=== PATIENT | male | born 1975 | race Caucasian/White ===

== ENCOUNTER 2023-09-02 00:54 | Day surgery (SDC) | payer OTHER, SELFPAY ==
[2023-06-09 09:12] VITALS: BMI 33.9
--- NOTE | 2023-06-15 11:43 | PC.NURSE ---
Patient informed RN during pre-op interview that he has been having palpitations more frequently and PCP referred him to cardiology. He saw Dr. Nicole 06/10/2023 and she since has put him on a 30 day holter monitor and sched. a transthoracic echo on 07/01/2023. Pt. has a history of jessica valve repair and atrial septal defect repair at age 10. screening Colonoscopy is rescheduled for 09/02/2023 after cardiac clearance is achieved.
--- NOTE | 2023-09-02 11:35 | PM.HPGS ---
History of Present Illness History of Present Illness Consent: Risks, benefits, and alternatives have been discussed and questions answered. Patient agrees to proceed with procedure. Chief complaint: neoplasm screening Narrative: Drew Patel is a 47 year old male here for first screening colonoscopy Review of Systems Review of Systems: All systems reviewed & are unremarkable except as noted in HPI and below PMFSH Past Medical History Medical History (Updated 09/02/23 @ 11:37 by Al Calvillo MD) Anxiety Bipolar 1 disorder Colon cancer screening PTSD (post-traumatic stress disorder) Surgical History Surgical History H/O atrial septal defect repair History of placement of ear tubes Family History Family History Grandparent Family history of multiple sclerosis Father Hypertension Social History Social History Smoking status: Never smoker Second hand tobacco smoke exposure: No Smoking end date: 02/14/06 Alcohol intake: current Alcohol use details: Socially Substance use: current Substance use type: marijuana Other substance usage details: Socially Last use: 05/19/23 Living arrangements: other Additional living arrangements comments: with sp Occupation/Education: occupation Gender identity (if verbalized by the patient): Male Sexual Orientation (if Verbalized by the Patient): Straight or Heterosexual Meds Home Medications and Allergies Home Medications Medication Instructions Recorded Confirmed Type sumatriptan succinate 100 mg tablet See Rx Instructions PO .COMPLEX 03/29/23 08/19/23 Rx #30 tabs aspirin 81 mg tablet 81 mg PO DAILY 06/09/23 08/19/23 History Allergies Allergy/AdvReac Type Severity Reaction Status Date / Time No Known Drug Allergies Allergy Unknown Unknown Verified 06/09/23 09:11 Exam Const: General: comfortable and no acute distress HENMT: Face/Nose/Sinus: Normal nares present Eyes: General: appearance normal, both eyes and all related structures Neck: Neck: no JVD Resp: Auscultation: clear to auscultation bilaterally Cardio: Rate: regular rate Rhythm: regular rhythm GI: Inspection: non-distended GI Palp: Yes Soft to palpation Skin: General skin exam: normal color Neuro: General: gait normal Speech: normal speech Extrem: General: normal to inspection Psych: Mental Status: mental status grossly normal Assessment and Plan Assessment and plan (1) Colon cancer screening: Code(s): Z12.11 - Encounter for screening for malignant neoplasm of colon Status: Acute Assessment and Plan: colonoscopy
[2023-09-02 11:42] VITALS: BP 124/79; PULSE 80; RESP 19; TEMP 36.2; O2SAT 99; BMI 33.5
--- NOTE | 2023-09-02 11:50 | WPDANESEPPF ---
Anes - Initial Pre Proc Eval Procedure: Operation Date: 09/02/23 12:30 Proposed Procedures p Screening Colonoscopy - Al Calvillo MD Date/Time: 09/02/23 11:50 Surgeon: Al Calvillo MD Pre Op Diagnosis: neoplasm screening Patient Data Age: 47 Gender: M Height: 1.83 m Weight: 112 kg Last Vital Signs Temp 97.1 F L 09/02/23 11:42 Pulse 80 09/02/23 11:42 Resp 19 09/02/23 11:42 BP 124/79 09/02/23 11:42 Pulse Ox 99 09/02/23 11:42 O2 Del Method Room Air 09/02/23 11:42 Allergies Allergy/AdvReac Type Severity Reaction Status Date / Time No Known Drug Allergies Allergy Unknown Unknown Verified 09/02/23 11:41 Home Medications Medication Instructions Recorded Confirmed Type sumatriptan succinate 100 mg tablet See Rx Instructions PO .COMPLEX 03/29/23 09/02/23 Rx #30 tabs aspirin 81 mg tablet 81 mg PO DAILY 06/09/23 09/02/23 History Patient hx anesthesia problems: other (Pt reports that he had awareness under GA as 10 yo for his ASD repair which has been traumatic to him. Explained natural progression of GA/GIVS today given his red hair, marijuana smoking hx and that this is a different sedation/GA without paralysis. Discussed and reassured pt at length. ) Family hx anesthesia problems: none Results Review: All pre-operative results and documents have been reviewed as part of the pre-operative evaluation. [facility] Past Medical History Medical History Anxiety Bipolar 1 disorder Colon cancer screening PTSD (post-traumatic stress disorder) Surgical History Surgical History H/O atrial septal defect repair History of placement of ear tubes Family History Family History Grandparent Family history of multiple sclerosis Father Hypertension Social History Social History Smoking status: Never smoker Second hand tobacco smoke exposure: No Smoking end date: 02/14/06 Alcohol intake: current Alcohol use details: Socially Substance use: current Substance use type: marijuana Other substance usage details: Socially Last use: 05/19/23 Living arrangements: other Additional living arrangements comments: with sp Occupation/Education: occupation Gender identity (if verbalized by the patient): Male Sexual Orientation (if Verbalized by the Patient): Straight or Heterosexual Anes - Eval Final PreProcedure Day of Procedure 09/02/23 11:50 Patient weight: obese Heart: regular rate and rhythm Lungs: clear to auscultation Airway: Mallampati scale class II Neurological: alert and oriented Last oral intake: >/= 8 hours ASA classification: III Emergent: no Anesthetic plan: proceed Anesthesia type and monitoring: general GIVS and standard monitoring Results Review: All pre-operative results and documents have been reviewed as part of the pre-operative evaluation. Hx of anxiety, ASD repair as a 10 yo w ECHO showing nml LVEF, mild R to L shunt without symptoms, being monitored appropriately. Pt active catrina davis, as an HVAC repairman, no cp or sob. Smokes marijuana several times weekly. Informed Consent: The patient's anesthetic plan and its attendant risks and benefits were discussed with the patient/family/POA. Questions were solicited and answers provided to the satisfaction of the patient/family/POA.
[2023-09-02] MEDS: LACTATED RINGERS 1,000 ML 150 ML IV CONT (11:56)
[2023-09-02 12:16] VITALS: BP 139/114; PULSE 80; RESP 21; O2SAT 95
[2023-09-02 12:26] VITALS: BP 132/101; PULSE 70; RESP 17; O2SAT 95
[2023-09-02 12:36] VITALS: BP 128/99; PULSE 68; RESP 26; O2SAT 95
== END 2023-09-02 12:42 | disposition home or self-care (01) ==
PROVIDERS: PCP Family Medicine; Visit Provider Internal Medicine Gastroenterology
PROC: 0DJD8ZZ Inspection of Lower Intestinal Tract, Via Natural or Artificial Opening Endoscopic (ICD-10-PCS; CPT 45378; principal; 2023-09-02 12:30)
DX: Z12.11 Encounter for screening for malignant neoplasm of colon (principal); K57.30 Diverticulosis of large intestine without perforation or abscess without bleeding; K64.8 Other hemorrhoids; F31.9 Bipolar disorder, unspecified
CPT/HCPCS: 45378; J2704; J7120

== ENCOUNTER 2024-12-12 10:23 | Outpatient (CLI) | payer OTHER, SELFPAY | END 2024-12-12 10:24 | disposition home or self-care (01) | LOC: ANHSURGERY 10:25 | PROVIDERS: PCP Family Medicine; Visit Provider Surgery | DX: K40.90 Unilateral inguinal hernia, without obstruction or gangrene, not specified as recurrent (principal); Z01.818 Encounter for other preprocedural examination | CPT/HCPCS: 36415; 86850; 86900; 86901 ==

== ENCOUNTER 2024-12-24 01:29 | Day surgery (SDC) | payer OTHER, SELFPAY ==
--- NOTE | 2024-12-11 15:51 | SUR.PREOP ---
[facility] has started construction of its new state of the art ER which will open Spring 2026. With this, we anticipate parking may be a challenge for some our surgical patients and families. Parking spaces are limited but are available for all Surgical, obstetrics, and ER patients sharing this lot. If you arrive and find you are having a hard time finding a parking space, please note that we understand the challenges, please drive around the hospital and park near Hospital Entrance 1. When you enter this entrance, you can ask a volunteer to direct or take you back to the surgical waiting area to check in. We appreciate everyone?s understanding of these expected challenges while we build for your future. Report to the Outpatient Waiting Room, entrance under the green pavilion located off [address], at time _7AM__ on date _12/24/24__. Planned Procedure Time: _9AM___.? Time changes happen often and if your time is changed the preop area will call you the afternoon before. - You and your visitor will be asked to self-screen and do not enter if you have any COVID symptoms. Please call surgeon if you need to reschedule. - A mask is optional within the hospital at this time. Patients may have clear liquids (water, carbonated beverages, clear teas, apple juice) until 3 hours prior to surgery with a maximum of 20 ounces. - No food from midnight until time of surgery and no smoking, or chewing tobacco (or any form of nicotine). No chewing gum, candy or mints. Take only the following medications with a SIP of water on the morning of surgery: _none DO NOT STOP ANY OF YOUR OTHER PRESCRIPTION MEDICATIONS PRIOR TO SURGERY EXCEPT THE FOLLOWING Hold all vitamins and supplements for 3 days per anesthesiologist. Medications to discontinue per physician _consult provider regarding meloxicam___ Date to take last dose of vitamins on___12/20/24__ Please no make-up, nail cook islander, hairspray, perfume, deodorant, or body powder the day of surgery.? No jewelry (including any body piercings) or valuables the day of surgery, leave them at home.? Please take a shower or bath the night before, or the morning of, surgery with an antibacterial soap.? Wear comfortable, loose fitting clothing.? - Jewelry must be removed prior to entering the operating room.? Rings and piercings that are not removed may be cut off. - The hospital will not accept responsibility for valuables.? - Please leave all valuables, including medications, at home the day of surgery. If you are going home after surgery, a licensed jukebox route driver must drive you home.? - NO public transportation without another adult if you receive anesthesia. - We recommend that an adult stay with you for 24 hours following discharge. - We also recommend that you do not drive, make important decision, drink alcoholic beverages, or take any drugs that were not prescribed by your health care provider for at least 24 hours after your discharge time. Follow any additional instructions given to you from your surgeon. Telephone instructions given to __Craig___and asked if any additional questions and then verbalized understanding. Patient advised to call surgeon office or pre surgery nurse liaison [phone] if any additional questions.
[2024-12-11 15:57] VITALS: BMI 29.9
[2024-12-24] VITALS (10 sets, daily range): BP systolic 113–154; BP diastolic 60–94; PULSE 51–75; RESP 10–16; TEMP 36.1–36.6; O2SAT 96–100; BMI 31.6
--- OUTSIDE RECORDS SUMMARY | 2024-12-24 01:33 | XMS_ITS | Clinical Summary ---
Author Organization [facility] Address [facility] [place] [address] Care Team Providers Care Canvas Cutter Machine Name Role Phone Cecilio Franco MD Primary Care Provider [phone] Encounters Date Type Department Care Team Description 11/02/2024 1:03 PM CDT - 11/02/2024 11:59 PM CDT Hospital Encounter [facility] [address] [place] [address] Miles Thompson PA Discharge Disposition: Home or Self Care (Routine Discharge) 11/02/2024 Travel from Last 3 Months Social History Tobacco Use Types Packs/Day Years Used Date Smoking Tobacco: Never Assessed Sex and Gender Information Value Date Recorded Sex Assigned at Male 11/02/2024 12:55 PM CDT Legal Sex Male 8:18 PM CDT Gender Identity Not on file Sexual Orientation Not on file Plan of Treatment Health Maintenance Due Date Last Done Comments Colorectal Cancer Screening Colonoscopy (10 Years) 1975 Annual Physical 11/16/1978 Hepatitis C 11/16/1993 Hepatitis B Vaccines (1 of 3 - 19+ 3-dose series) 11/16/1994 DTaP, Tdap and Td Vaccines (6 - Td or Tdap) 08/03/2020 08/03/2010, 06/29/1977, 06/29/1977, Additional history exists COVID-19 Vaccine ( season) 2024 09/30/2020 Influenza Adult (#1) 2024 01/13/2015, 02/28/19 14 Hepatitis A Vaccines Aged Out No long er eligible based on patient's age to complete this topic Meningococcal B Vaccine Aged Out No l onger eligible based on patient's age to complete this topic Meningococcal Vaccine Aged Out No lissa aurora eligible based on patient's age to complete this topic Pneumococcal Vaccine: Pediatrics (0 to 5 Years) and At-Risk Patients (6 to 49 Years) Aged Out No longer eligible based on patient's age to complete this topic RSV Immunizations Under 20 Months Aged Out No longer eligible based on patient's age to complete this topic Procedures Procedure Name Priority Date/Time Associated Diagnosis Comments US TESTICULAR W DOPPLER Routine 11/02/2024 2:47 PM CDT Right lower quadrant pain Right testicular pain US LOW EXT NONVASC LTD RT Routine 11/02/2024 2:47 PM CDT Right lower quadrant pain Right testicular pain from Last 3 Months Results * US TESTICULAR W DOPPLER (11/02/2024 2:47 PM CDT) Anatomical Region Laterality Modality Pelvis Ultrasound 11/02/2024 2:55 PM CDT Impressions 11/02/2024 3:01 PM CDT IMPRESSION: 1. Fat-containing right inguinal hernia extending to the level of the scrotum. 2. Unremarkable sonographic appearance of the testes. 2. Tiny left epididymal head cyst measuring 4 mm. No specific follow-up is required. Ordered By: MILES THOMPSON Interpreted By: Xavier Miranda MD, 11/02/2024 2:55 PM Narrative 11/02/2024 3:01 PM CDT [facility] [address] [place], [place] [address] US TESTICULAR W DOPPLER, US LOW EXT NONVASC LTD RT INDICATION: Right lower quadrant pain ad right testicular swelling. TECHNIQUE: Grayscale color and spectral Doppler ultrasound performed of the testes. Limited grayscale and color Doppler ultrasound performed of the right inguinal region. COMPARISON: None FINDINGS: A fat-containing right inguinal hernia is identified. This measures 3.1 x 2.5 cm. This extends to the level of the scrotum. Normal morphology right inguinal lymph nodes with normal reniform shape and echogenic fatty hilum, measuring up to 4 mm short axis. The right testis demonstrates normal echogenicity measuring 2.7 x 4.1 x 1.9 cm. Patent Doppler flow is demonstrated. No intratesticular mass. The right epididymis appears normal measuring 0.7 x 1.0 x 1.3 cm. No hydroceles or varicoceles are seen. The left testis demonstrates normal echogenicity measuring 2.3 x 3.9 x 2.0 cm. There is patent Doppler flow demonstrated. No intratesticular mass. The left epididymis appears normal measuring 0.8 x 1.1 x 1.0 cm. There is a tiny left epididymal head cyst measuring 4 x 4 by 3 mm. No specific follow-up is required. No hydrocele or varicoceles are seen. The scrotal soft tissues are unremarkable. Procedure Note Xavier Miranda MD - 11/02/[address] [address] US TESTICULAR W DOPPLER, US LOW EXT NONVASC LTD RT INDICATION: Right lower quadrant pain ad right testicular swelling. TECHNIQUE: Grayscale color and spectral Doppler ultrasound performed ofthe testes. Limited grayscale and color Doppler ultrasound performed ofthe right inguinal region. COMPARISON: None FINDINGS: A fat-containing right inguinal hernia is identified. This measures 3.1 x2.5 cm. This extends to the level of the scrotum. Normal morphology rightinguinal lymph nodes with normal reniform shape and echogenic fatty hilum,measuring up to 4 mm short axis. The right testis demonstrates normal echogenicity measuring 2.7 x 4.1 x1.9 cm. Patent Doppler flow is demonstrated. No intratesticular mass. Theright epididymis appears normal measuring 0.7 x 1.0 x 1.3 cm. Nohydroceles or varicoceles are seen. The left testis demonstrates normal echogenicity measuring 2.3 x 3.9 x 2.0cm. There is patent Doppler flow demonstrated. No intratesticular mass.The left epididymis appears normal measuring 0.8 x 1.1 x 1.0 cm. There seferino tiny left epididymal head cyst measuring 4 x 4 by 3 mm. No specificfollow-up is required. No hydrocele or varicoceles are seen. The scrotal soft tissues are unremarkable. IMPRESSION: 1. Fat-containing right inguinal hernia extending to the level of thescrotum. 2. Unremarkable sonographic appearance of the testes. 2. Tiny left epididymal head cyst measuring 4 mm. No specific follow-up isrequired. Ordered By: MILES THOMPSON Interpreted By: Xavier Miranda MD, 11/02/2024 2:55 PM us Miles Thompson [place] [facility] Final Result * US LOW EXT NONVASC LTD RT (11/02/2024 2:47 PM CDT) Anatomical Region Laterality Modality Extremity Ultrasound 11/02/2024 2:55 PM CDT Impressions 11/02/2024 3:01 PM CDT IMPRESSION: 1. Fat-containing right inguinal hernia extending to the level of the scrotum. 2. Unremarkable sonographic appearance of the testes. 2. Tiny left epididymal head cyst measuring 4 mm. No specific follow-up is required. Ordered By: MILES THOMPSON Interpreted By: Xavier Miranda MD, 11/02/2024 2:55 PM Narrative 11/02/2024 3:01 PM CDT [address] [address] US TESTICULAR W DOPPLER, US LOW EXT NONVASC LTD RT INDICATION: Right lower quadrant pain ad right testicular swelling. TECHNIQUE: Grayscale color and spectral Doppler ultrasound performed of the testes. Limited grayscale and color Doppler ultrasound performed of the right inguinal region. COMPARISON: None FINDINGS: A fat-containing right inguinal hernia is identified. This measures 3.1 x 2.5 cm. This extends to the level of the scrotum. Normal morphology right inguinal lymph nodes with normal reniform shape and echogenic fatty hilum, measuring up to 4 mm short axis. The right testis demonstrates normal echogenicity measuring 2.7 x 4.1 x 1.9 cm. Patent Doppler flow is demonstrated. No intratesticular mass. The right epididymis appears normal measuring 0.7 x 1.0 x 1.3 cm. No hydroceles or varicoceles are seen. The left testis demonstrates normal echogenicity measuring 2.3 x 3.9 x 2.0 cm. There is patent Doppler flow demonstrated. No intratesticular mass. The left epididymis appears normal measuring 0.8 x 1.1 x 1.0 cm. There is a tiny left epididymal head cyst measuring 4 x 4 by 3 mm. No specific follow-up is required. No hydrocele or varicoceles are seen. The scrotal soft tissues are unremarkable. Procedure Note Xavier Miranda MD - 11/02/[address] [address] US TESTICULAR W DOPPLER, US LOW EXT NONVASC LTD RT INDICATION: Right lower quadrant pain ad right testicular swelling. TECHNIQUE: Grayscale color and spectral Doppler ultrasound performed ofthe testes. Limited grayscale and color Doppler ultrasound performed ofthe right inguinal region. COMPARISON: None FINDINGS: A fat-containing right inguinal hernia is identified. This measures 3.1 x2.5 cm. This extends to the level of the scrotum. Normal morphology rightinguinal lymph nodes with normal reniform shape and echogenic fatty hilum,measuring up to 4 mm short axis. The right testis demonstrates normal echogenicity measuring 2.7 x 4.1 x1.9 cm. Patent Doppler flow is demonstrated. No intratesticular mass. Theright epididymis appears normal measuring 0.7 x 1.0 x 1.3 cm. Nohydroceles or varicoceles are seen. The left testis demonstrates normal echogenicity measuring 2.3 x 3.9 x 2.0cm. There is patent Doppler flow demonstrated. No intratesticular mass.The left epididymis appears normal measuring 0.8 x 1.1 x 1.0 cm. There seferino tiny left epididymal head cyst measuring 4 x 4 by 3 mm. No specificfollow-up is required. No hydrocele or varicoceles are seen. The scrotal soft tissues are unremarkable. IMPRESSION: 1. Fat-containing right inguinal hernia extending to the level of thescrotum. 2. Unremarkable sonographic appearance of the testes. 2. Tiny left epididymal head cyst measuring 4 mm. No specific follow-up isrequired. Ordered By: MILES THOMPSON Interpreted By: Xavier Miranda MD, 11/02/2024 2:55 PM Miles Thompson [place] [facility] Final Result from Last 3 Months Insurance [employer] Care Teams Canvas Cutter Machine Relationship Specialty Start Date End Date Cecilio Franco MD [address] [place] [address] PCP - General FAMILY PRACTICE 11/02/24
--- NOTE | 2024-12-24 07:21 | WPDANESEPPF ---
Anes - Initial Pre Proc Eval Procedure: Operation Date: 12/24/24 09:00 Proposed Procedures p Robotic Right Inguinal Hernia Repair with Mesh - Jaki Casper MD Date/Time: 12/24/24 07:21 Surgeon: Jaki Casper MD Pre Op Diagnosis: right ing hernia Patient Data Age: 49 Gender: M Height: 1.83 m Weight: 100 kg Allergies Allergy/AdvReac Type Severity Reaction Status Date / Time No Known Drug Allergies Allergy Unknown Unknown Verified 12/11/24 15:52 Home Medications ?Medication ?Instructions ?Recorded ?Confirmed ?Type aspirin 81 mg tablet 81 mg PO DAILY 06/09/23 12/11/24 History meloxicam 15 mg tablet 15 mg PO DAILY PRN pain #30 tabs 11/26/24 12/11/24 Rx multivitamin 1 tablet PO DAILY 12/11/24 12/11/24 History prasterone (DHEA) 25 mg tablet 25 mg PO DAILY 12/11/24 12/11/24 History (DHEA) testosterone undecanoate 750 mg/3 3 mg IM WEEKLY 12/11/24 12/11/24 History mL (250mg/mL) intramuscular solution vitamin B complex (Complex B-100 1 tablet PO DAILY 12/11/24 12/11/24 History tablet,extended release) Patient hx anesthesia problems: none Family hx anesthesia problems: none Results Review: All pre-operative results and documents have been reviewed as part of the pre-operative evaluation. [facility] Past Medical History Medical History Colon cancer screening PTSD (post-traumatic stress disorder) Bipolar 1 disorder Anxiety Surgical History Surgical History Hx of colonoscopy Hx of heart surgery 1986 History of placement of ear tubes H/O atrial septal defect repair Family History Family History Father Hypertension Social History Social History Social History: Years smoked: 10 Smoking status: Former smoker Tobacco type: cigarettes Second hand tobacco smoke exposure: No Smoking end date: 02/14/06 Alcohol intake: current Alcohol use details: Socially Substance use: current Substance use type: marijuana Other substance usage details: Socially Last use: 05/19/23 Do You Feel Safe in your Home?: Yes Lack of Transportation: No Lack of Food: Never True Current Housing: I Have Housing Concerned About Future Housing: No Difficulty Paying Gas/Electric Bills: No Difficulty Paying for Meds: No Currently Unemployed: No Education: Associate Degree Difficulty w/ Childcare or Family Care: No Living arrangements: with family Occupation/Education: occupation Gender identity (if verbalized by the patient): Male Sexual Orientation (if Verbalized by the Patient): Straight or Heterosexual Spiritual care concerns: No Anes - Eval Final PreProcedure Day of Procedure 12/24/24 07:21 Patient weight: obese Heart: regular rate and rhythm Lungs: clear to auscultation Airway: Mallampati scale class II Neurological: alert and oriented Last oral intake: >/= 8 hours ASA classification: III Emergent: no Anesthetic plan: proceed Anesthesia type and monitoring: general ETT and standard monitoring Results Review: All pre-operative results and documents have been reviewed as part of the pre-operative evaluation. Informed Consent: The patient's anesthetic plan and its attendant risks and benefits were discussed with the patient/family/POA. Questions were solicited and answers provided to the satisfaction of the patient/family/POA.
[2024-12-24] MEDS: KETOROLAC 15 MG/ML VIAL (*BKC) IV PUSH (07:27)
[2024-12-24] MEDS: ACETAMINOPHEN 500 MG TABLET 1000 MG PO (07:28)
[2024-12-24] MEDS: LACTATED RINGERS 1,000 ML 30 ML IV CONT ×3 (07:30→13:30)
--- NOTE | 2024-12-24 08:57 | PM.IMHP ---
H&P: HPI History of Present Illness Date/Time: 12/24/24 08:57 <Robert Narvaez DO - Last Filed: 12/24/24 09:36> Chief Complaint: inguinal hernia <Robert Narvaez DO - Last Filed: 12/24/24 09:36> Narrative: Patient is a 49 yo male who was seen on 11/14 for a right inguinal hernia. He reports no changes since we saw him in clinic. On exam, he has a moderately sized right inguinal hernia, he also has a possible left inguinal hernia. He reports continued discomfort and wishes to have this repaired. We will proceed with repair today. <Robert Narvaez DO - Last Filed: 12/24/24 09:36> Review of Systems Review of Systems: All systems reviewed & are unremarkable except as noted in HPI and below <Robert Narvaez DO - Last Filed: 12/24/24 09:36> PMFSH Past Medical History Medical History: Medical History Colon cancer screening PTSD (post-traumatic stress disorder) Bipolar 1 disorder Anxiety <Robert Narvaez DO - Last Filed: 12/24/24 09:36> Surgical History Surgical History: Surgical History Hx of colonoscopy Hx of heart surgery 1987 History of placement of ear tubes H/O atrial septal defect repair <Robert Narvaez DO - Last Filed: 12/24/24 09:36> Family History Family History: Family History Father Hypertension <Robert Narvaez DO - Last Filed: 12/24/24 09:36> Social History Social History: Social History Social History: Years smoked: 10 Smoking status: Former smoker Tobacco type: cigarettes Second hand tobacco smoke exposure: No Smoking end date: 02/14/06 Alcohol intake: current Alcohol use details: Socially Substance use: current Substance use type: marijuana Other substance usage details: Socially Last use: 05/19/23 Do You Feel Safe in your Home?: Yes Lack of Transportation: No Lack of Food: Never True Current Housing: I Have Housing Concerned About Future Housing: No Difficulty Paying Gas/Electric Bills: No Difficulty Paying for Meds: No Currently Unemployed: No Education: Associate Degree Difficulty w/ Childcare or Family Care: No Living arrangements: with family Occupation/Education: occupation Gender identity (if verbalized by the patient): Male Sexual Orientation (if Verbalized by the Patient): Straight or Heterosexual Spiritual care concerns: No <Robert Narvaez DO - Last Filed: 12/24/24 09:36> Meds Home Medications and Allergies Home medications: Home Medications ?Medication ?Instructions ?Recorded ?Confirmed ?Type aspirin 81 mg tablet 81 mg PO DAILY 06/09/23 12/24/24 History meloxicam 15 mg tablet 15 mg PO DAILY PRN pain #30 tabs 11/26/24 12/24/24 Rx multivitamin 1 tablet PO DAILY 12/11/24 12/24/24 History prasterone (DHEA) 25 mg tablet 25 mg PO DAILY 12/11/24 12/24/24 History (DHEA) testosterone undecanoate 750 mg/3 3 mg IM WEEKLY 12/11/24 12/24/24 History mL (250mg/mL) intramuscular solution vitamin B complex (Complex B-100 1 tablet PO DAILY 12/11/24 12/24/24 History tablet,extended release) docusate sodium 100 mg capsule 100 mg PO BID #20 caps 12/24/24 Rx (Colace) hydrocodone 5 mg-acetaminophen 325 1 tablet PO Q6H PRN pain #20 tabs 12/24/24 Rx mg tablet <Robert Narvaez, DO - Last Filed: 12/24/24 09:36> Allergies/Adverse reactions: Allergies Allergy/AdvReac Type Severity Reaction Status Date / Time No Known Drug Allergies Allergy Unknown Unknown Verified 12/11/24 15:52 <Robert Narvaez DO - Last Filed: 12/24/24 09:36> Vital Signs Vital Signs - 24 hr 12/24/24 06:50 Temperature 97.8 F Pulse Rate 65 Blood Pressure 113/68 Pulse Oximetry 99 <Robert Narvaez DO - Last Filed: 12/24/24 09:36> Exam Const: General: no acute distress, alert and awake <Robert Narvaez DO - Last Filed: 12/24/24 09:36> HENMT: Head: normocephalic and atraumatic <Robert E. Narvaez, DO - Last Filed: 12/24/24 09:36> Eyes: General: appearance normal, both eyes and all related structures <Robert E. Narvaez, DO - Last Filed: 12/24/24 09:36> Neck: Neck: normal visual inspection and trachea midline <Robert E. Narvaez, DO - Last Filed: 12/24/24 09:36> Resp: Other: symmetric expansion, no IWOB, on RA <Robert E. Narvaez, DO - Last Filed: 12/24/24:36> Cardio: Rate: regular rate <Robert E. Narvaez, DO - Last Filed: 12/24/24 09:36> Rhythm: regular rhythm <Robert E. Narvaez, DO - Last Filed: 12/24/24:36> GI: Other: right inguinal hernia, reducible, possible left <Robert E. Narvaez, DO - Last Filed: 12/24/24 09:36> Extrem: General: normal to inspection <Robert E. Narvaez, DO - Last Filed: 12/24/24:36> Assessment and Plan Assessment and plan (1) Inguinal hernia without obstruction or gangrene: Qualifiers: Laterality: unilateral Recurrence: non-recurrent Qualified Code(s): K40.90 - Unilateral inguinal hernia, without obstruction or gangrene, not specified as recurrent <Robert E. Narvaez, DO - Last Filed: 12/24/24 09:36> Code(s): K40.90 - Unilateral inguinal hernia, without obstruction or gangrene, not specified as recurrent <Robert E. Narvaez, DO - Last Filed: 12/24/24 09:36> Status: Acute <Robert E. Narvaez, DO - Last Filed: 12/24/24 09:36> Assessment and Plan: the patient has a right inguinal hernia, possible left. We discussed the risks, benefits, and alternatives of having this repaired. All questions were answered. He was evaluated and marked in preop. He agrees to proceed with inguinal hernia repair today See attending attestation for further plan <Robert E. Narvaez, DO - Last Filed: 12/24/24 09:36> Attestation Supervising Provider Attestation I, Jaki Casper MD, have provided a substantive portion of the care of this patient. I performed the history, exam and/or medical decision making for this encounter. Jaki Casper MD 12/24/24;11:41 <Jaki Casper MD - Last Filed: 12/24/24 11:41>
--- NOTE | 2024-12-24 09:02 | WPDHPUPDATE1 ---
History and Physical Update Update Date/Time: 12/24/24 09:02 History and Physical has been reviewed, including an updated exam of the patient. There are NO changes in the patient's condition. Risks, benefits, and alternatives have been discussed and questions answered. Patient agrees to proceed with procedure.
[2024-12-24] MEDS: ceFAZolin 2 GM in SODIUM CHLORIDE 0.9% IV 50 ML 100 ML IVPB (09:32)
[2024-12-24] MEDS: BUPIVACAINE/EPINEPHRINE 0.5% 50 ML VIAL 30 ML INFILTRATE (10:21)
--- NOTE | 2024-12-24 11:41 | W.PM.PROC2 ---
Procedure Note - Detailed Date of Procedure 12/24/24 Pre-op Diagnosis Right inguinal hernia Post-op Diagnosis Same Procedure Performed robotic assisted right inguinal hernia repair with mesh Surgeon Jaki Casper MD Welding Machine Operator Helper Arc Narvaez Anesthesia General and Local Indications 49-year-old male presenting with a moderate to large sized right inguinal hernia Findings moderate-sized right inguinal hernia with a large lipoma of the cord Description of Procedure Patient was brought into the operating room and placed in the supine position. After adequate induction of general anesthesia, the patient was prepped and draped in normal sterile fashion. A time-out was then done to verify the patient's identity, as well as the procedure being performed. Began by making a 8 mm incision in the supraumbilical region, a Veress needle was then placed into the peritoneal cavity. CO2 gas was then insufflated and after adequate pneumoperitoneum was achieved, the Veress needle was removed. I then placed an 8 mm trocar through this incision. I then placed the endoscope through this trocar site and under direct visualization placed 2 further 8 mm ports in the right and left mid abdomen. The Admeldi robot was then docked to the 3 trocar sites. I then scrubbed out and went to the robotic console. Upon examining the pelvis, it was noted that the patient had a large right inguinal hernia. The left side was examined and no hernia defect was noted. I began by making a preperitoneal flap approximately 6 cm superior to the defect. This flap was carried medially past the umbilical ligaments in laterally to the transversalis. It then began dissection of my medial compartment taking this down to the pubic tubercle. I then began the lateral dissection taking this down to the transversalis fascia. Once these compartments were achieved, I began dissection around the cord structures. A moderate sized indirect hernia was noted at this point. Using careful dissection, was able to reduce indirect hernia sac off the cord structures. There was also a large lipoma of the cord that was reduced back into the preperitoneal space. Once this was adequately done, I went ahead and placed a large piece of 3D Max mesh into the abdominal cavity. The mesh was carefully positioned, centering the center of the mesh over the indirect defect. Once this was done, was very satisfied with our repair. Using 3-0 Vicryl sutures, I tacked the mesh medially to Lino's ligament. Two lateral sutures were placed from the mesh to the transversalis fascia. I then closed the peritoneal flap with a running 2.0 V Lock suture. The abdomen was then desufflated, and all ports were removed. All incisions were then closed with the 4.0 monocryl suture. Dermabond was placed on each wound. The patient tolerated the procedure well, was extubated in the operating room postoperatively, and will now be transferred to the recovery room in stable condition. Implants large 3DMax mesh Estimated Blood Loss 25 Drains No Packing No Pathology None sent Complications No immediate complications Condition Stable Disposition PACU [facility] Billing Surgery - Charge Forward: Surgery Billing
[2024-12-24] MEDS: fentaNYL CITRATE INJ (*CRX) 100 MCG/2 ML VIAL 25 MCG IV PUSH ×4 (12:12→12:22)
[2024-12-24] MEDS: oxyCODONE HCL (*CRX) 5 MG TAB IR PO (12:42)
== END 2024-12-24 14:20 | disposition home or self-care (01) ==
PROVIDERS: PCP Family Medicine; Visit Provider Surgery
PROC: 8E0Y4CZ Robotic Assisted Procedure of Lower Extremity, Percutaneous Endoscopic Approach (ICD-10-PCS; CPT 49650; principal; 2024-12-24 09:00)
DX: K40.90 Unilateral inguinal hernia, without obstruction or gangrene, not specified as recurrent (principal); F43.10 Post-traumatic stress disorder, unspecified; F31.9 Bipolar disorder, unspecified; F41.9 Anxiety disorder, unspecified; F12.90 Cannabis use, unspecified, uncomplicated; E66.9 Obesity, unspecified; Z68.31 Body mass index [BMI] 31.0-31.9, adult; Z79.82 Long term (current) use of aspirin; Z79.891 Long term (current) use of opiate analgesic; Z98.890 Other specified postprocedural states; Z87.891 Personal history of nicotine dependence
CPT/HCPCS: 49650; S2900; J0690; A9270; C1781; J1100; J1885; J2003; J2250; J2405; J2704; J3010; J7120